=== PATIENT | female | born 1975 | race Caucasian/White ===

== ENCOUNTER 2017-08-29 19:12 | Emergency (ER) | payer SELFPAY ==
[2017-08-29] MEDS: LIDOCAINE 1% PF 30 ML VIAL. INJ (19:59)
[2017-08-29] MEDS: BUPIVACAINE 0.5% 50 ML VIAL. INJ (20:00)
== END 2017-08-29 20:29 | disposition home or self-care (01) ==
LOC: ER 19:12
DX: M62.838 Other muscle spasm (principal)
CPT/HCPCS: 20552; 99284; J3490